=== PATIENT | female | born 1975 | race Caucasian/White ===

== ENCOUNTER 2018-09-06 05:16 | Emergency (ER) | payer OTHER ==
[~2018-09-06] VITALS: Ht 162.6 cm; Wt 65.8 kg
[2018-09-06 05:18] VITALS: BP 141/86
--- NOTE | 2018-09-06 05:46 | PHYS DOC ---
Past Medical History Past Medical History: Depression, Other Additional Past Medical Histor: insomnia Past Surgical History: Tubal ligation Alcohol Use: Occasionally Drug Use: None Adult General Chief Complaint Chief Complaint: [facility] HPI Patient is a 43 year old female presenting with shoulder pain is been like this for several days she thinks she was slept on it wrong she is worried something scratchy did not fall as far she knows. Symptoms are moderate slowly worsening with time has not tried anything for relief. She says her friend told her that she has to worry about acid pockets in the shoulder really cannot ascertain exactly what this was about. Review of Systems Review of Systems Constitutional: Denies fever or chills [] Eyes: Denies change in visual acuity, redness, or eye pain [] HENT: Denies nasal congestion or sore throat [] Respiratory: Denies cough or shortness of breath [] Cardiovascular: No additional information not addressed in HPI [] Musculoskeletal: Integument: Denies rash or skin lesions [] Neurologic: Denies headache, focal weakness or sensory changes [] Endocrine: Denies polyuria or polydipsia [] All other systems were reviewed and found to be within normal limits, except as documented in this note. Allergies Allergies Allergies Coded Allergies Type Severity Reaction Last Updated Verified doxycycline Allergy Mild GI upset 05/06/15 Yes Physical Exam Physical Exam Constitutional: Well developed, well nourished, no acute distress, non-toxic appearance. [] HENT: Normocephalic, atraumatic, bilateral external ears normal, oropharynx moist, no oral exudates, nose normal. [] Eyes: PERRLA, EOMI, conjunctiva normal, no discharge. [] Neck: Normal range of motion, no tenderness, supple, no stridor. [] Pulmonary: Normal respiratory effort no increased work of breathing no obvious chest wall trauma Abdomen: Bowel sounds normal, soft, no tenderness, no masses, no pulsatile masses. [] Skin: Warm, dry, no erythema, no rash. [] Back: No tenderness, no CVA tenderness. [] Extremities: Some pain with abduction of the shoulder but still able to move it fairly well cannot lift over the head. No signs of erythema or trauma seen. Neurologic: Alert and oriented X 3, normal motor function, normal sensory function, no focal deficits noted. [] Psychologic: Affect normal, judgement normal, mood normal. [] Current Patient Data Vital Signs Vital Signs Date Time Temp Pulse Resp B/P (MAP) Pulse Ox O2 Delivery O2 Flow Rate FiO2 09/06/18 05:18 98.1 94 20 141/86 (104) 100 Room Air 98.1 EKG EKG [] Radiology/Procedures Radiology/Procedures [] Impressions: Shoulder x-ray my read negative acute. Course & Med Decision Making Course & Med Decision Making Pertinent Labs and Imaging studies reviewed. (See chart for details) []Shoulder pain atraumatic x-ray negative reassurance provided conservative therapy ice rest physical therapy etc. Dragon Disclaimer Dragon Disclaimer This electronic medical record was generated, in whole or in part, using a voice recognition dictation system. Departure Departure Impression: Primary Impression: Shoulder pain Disposition: 01 HOME, SELF-CARE Condition: STABLE Patient Instructions: Shoulder Pain, [id number] ANU ANDERSON MD Sep 06, 2018 05:46
--- NOTE | 2018-09-06 05:51 | RAD ---
Left shoulder 3 views: Reason for examination: Trauma with shoulder pain. No fracture or dislocation is seen. The bone density is normal. No abnormal periosteal reaction is seen. Joint spaces are maintained. IMPRESSION: No acute bony abnormality at the left shoulder. Electronically signed by: Raquel Carver MD (09/06/2018 5:47 AM) [id number]
== END 2018-09-06 05:45 | disposition home or self-care (01) ==
LOC: ER 05:16
DX: M25.512 Pain in left shoulder (principal); Z88.1 Allergy status to other antibiotic agents
CPT/HCPCS: 73030; 99283; 99284